=== PATIENT | female | born 1995 | race Caucasian/White ===

== ENCOUNTER 2016-04-01 17:20 | Inpatient (IN) | payer OTHER ==
[~2016-04-01] VITALS: Ht 165.1 cm; Wt 73.2 kg
[2016-04-01 19:21] VITALS: BP 122/75; PULSE 78; RESP 18
[2016-04-01] MEDS ORDERED: PRENAT PO (19:23)
[2016-04-01] MEDS ORDERED: CALC-516 PO (19:24)
[2016-04-01] MEDS ORDERED: LIDOCAINE 1% (MPF) 30 ML INJ INJ PRN (19:30)
[2016-04-01] MEDS ORDERED: MISOPROSTOL 200 MCG TAB PR PRN (19:30)
[2016-04-01] MEDS ORDERED: OXYTOCIN 30 UNITS/LR 500 ML IV PRN (19:30)
[2016-04-01] MEDS ORDERED: ACETAMINOPHEN/CODEINE #3 TAB PO PRN (19:30)
[2016-04-01] MEDS ORDERED: CARBOPROST 250 MCG INJ IM PRN (19:30)
[2016-04-01] MEDS ORDERED: OXYTOCIN 30 UNITS/LR 500 ML IV SCH ×3 (19:30→22:30)
[2016-04-01] MEDS ORDERED: BUTORPHANOL 2 MG INJ IV PRN ×2 (19:30)
[2016-04-01] MEDS ORDERED: LACTATED RINGER'S 1,000 ML IV PRN (19:30)
[2016-04-01] MEDS ORDERED: IBUPROFEN 600 MG TAB PO PRN (19:30)
[2016-04-01] MEDS ORDERED: METHYLERGONOVINE 0.2 MG INJ IM PRN (19:30)
[2016-04-01] MEDS: LACTATED RINGER'S 1,000 ML IV SCH (19:44)
--- NOTE | 2016-04-01 20:00 | TRIAGE ---
OB Triage Datetime Report Generated by CPN: 04/01/2016 19:59 Datetime: 04/01/2016 19:19 Vaginal Exam Dilatation (cms): 1.0 Effacement (%): 90 Membrane Status: Intact Datetime: 04/01/2016 19:18 Stage of : OB Triage Labor Evaluation Frequency: 2-4 Monitor Mode: External Duration (sec)2399: 80-140 Quality: Mild Resting Tone [place]: Relaxed Heart Rate FHR Baseline Rate: 140 Monitor Mode: External US FHR Baseline Changes: No Baseline Change Variability: Moderate 6-25 bpm Accelerations: 15X15 Decelerations: None Category: Category I Pain Assessment Pain Presence: None/Denies Pain Type: N/A Datetime: 04/01/2016 19:17 Stage of : Labor Datetime: 04/01/2016 19:09 Stage of : OB Triage Datetime: 04/01/2016 18:30 Stage of : OB Triage Labor Evaluation Frequency: 2-5 Monitor Mode: External Duration (sec)2399: 80-130 Quality: Mild Resting Tone [place]: Relaxed Heart Rate FHR Baseline Rate: 135 Monitor Mode: External US Variability: Moderate 6-25 bpm Accelerations: 15X15 Decelerations: Variable Category: Category I Pain Assessment Pain Presence: None/Denies Pain Type: N/A Datetime: 04/01/2016 18:27 Stage of : OB Triage Datetime: 04/01/2016 18:22 Vaginal Exam Dilatation (cms): 1.0 Effacement (%): 90 Station: -2 Exam By: M MENDOZA Vaginal Bleeding: None Cervix, Consistency: Soft Cervix, Position: Posterior Presentation 'A': Cephalic Datetime: 04/01/2016 17:51 Assessment Type: Triage Maternal Assessment Level of Consciousness: Fully Conscious DTR's/Clonus: DTRs 1+; No Clonus Headache: Denies Blurred Vision: No Respiratory Effort: Unlabored Breath Sounds, Left: Clear and Equal Breath Sounds, Right: Clear and Equal Nausea/Vomiting: Denies RUQ Epigastric Pain: Denies Lower Extremities Edema: None Degree: None Upper Extremities Edema: None Degree: None Facial Edema: None Fall Risk Assessment History of Falling: (0) No Secondary Diagnosis: (0) No Ambulatory Aid: (0) Bedrest/Nurse Assist IV Therapy: (0) No Gait: (0) Normal/Bedrest/Immobile Mental Status: (0) Oriented to Own Ability Fall Score: 0 Fall Risk Score Definition: No Risk: No action required Datetime: 04/01/2016 17:39 Stage of : OB Triage EGA: 38.0 Monitor Mode: External Monitor Mode: External US Datetime: 04/01/2016 17:35 Time of Arrival: 04/01/2016 17:19 Arrived By: Ambulatory Arrived From: Home Chief Complaint: SPOTTING Movement: Present Contractions: Denies/Absent Rupture of Membranes: Denies Vaginal Bleeding: Scant Vaginal Discharge: Denies Recent Sexual Intercouse: Denies Abdominal Trauma: Not Applicable Patient Complaints: Other Provider Notified: REICHE Initial Plan: VS, EFM, SVE Datetime: 04/01/2016 17:33 Stage of : OB Triage Datetime: 04/01/2016 17:28 Stage of : OB Triage
[2016-04-01 20:10] VITALS: Ht 165.1 cm; Wt 73.2 kg
[2016-04-01 20:21] LABS: BASOPHILS % 0.6 % (0.0-2.0); EOSINOPHILS % 0.4 % (0.0-7.0); HEMATOCRIT 35.9 % (37.0-47.0); HEMOGLOBIN 12.2 g/dl (12.0-16.0); LYMPHOCYTES # 1.5 10^3/ul (0.8-2.9); LYMPHOCYTES % 18.5 % (15.0-51.0); MEAN CORPUSCULAR HEMOGLOBIN 30.4 pg (29.0-33.0); MEAN CORPUSCULAR VOLUME 89.5 fl (82.0-101.0); MEAN PLATELET VOLUME 10.2 fl (7.4-10.4); MONOCYTE # 0.6 10^3/ul (0.3-0.9); MONOCYTES % 7.9 % (0.0-11.0); NEUTROPHIL # 5.9 10^3/ul (1.6-7.5); NEUTROPHILS % 72.6 % (39.0-77.0); PLATELET COUNT 142 10^3/UL (140-440); RED BLOOD COUNT 4.01 10^6/ul (4.20-5.40); RED CELL DISTRIBUTION WIDTH 13.2 % (11.5-14.5); UNCORRECTED WBC 8.2 10^3/ul (4.8-10.8); WHITE BLOOD COUNT 8.2 10^3/ul (4.8-10.8)
[2016-04-01 20:24] LABS: INR 0.96; PROTIME 12.8 Sec (12.2-14.2)
[2016-04-01 20:25] LABS: PARTIAL THROMBOPLASTIN TIME 26.3 Sec (25.0-35.0)
[2016-04-01 20:26] LABS: CONDITION 1
[2016-04-02] MEDS: LACTATED RINGER'S 1,000 ML IV SCH ×3 (02:32→09:49)
[2016-04-02] MEDS ORDERED: FENTAnyl 2MCG/ML-ROPIV 0.2% 100 ML ONE (05:16)
--- NOTE | 2016-04-02 14:01 | HP ---
Date/Time of Note Date/Time of Note DATE: 04/02/16 TIME: 13:56 OB - History Hx of Present Free Text/Dictation 20 years old white female 1 para 0 with EDC of April 15 admitted to [facility] in active labor examination on admission cervical dilatation 1 cm 90% effacement vertex at -2 station patient transferred from triage to L&D unit for delivery This patient has been under the care of the [place] [facility] and her course was uneventful except anemia was not complicated with -induced hypertension or gestational diabetes Estimated Due Date: Apr 15, 2016 : 1 Para: 0 Care: Good Care Ultrasounds: Normal mid trimester US Obstetrical Complications: None Medical Complications: None Past Family/Social History * Past Medical, Surgical, Family and Obstetric Histories reviewed from chart. Rubella: immune RPR/VDRL: Negative GBS Status: Negative HBsAG: Negative OB Admission Exam Vital Signs Vital Signs Vital Signs Date Time Temp Pulse Resp B/P Pulse Ox O2 Delivery O2 Flow Rate FiO2 04/01/16 19:21 98.9 78 18 122/75 Room Air Last 72 hours Lab Results CBC & BMP 04/01/16 19:35 KARLA SALAS MD Apr 02, 2016 14:01
--- NOTE | 2016-04-02 14:07 | LDN ---
Date/Time of Note Date/Time of Note DATE: 04/02/16 TIME: 14:01 Delivery Summary Normal spontaneous vaginal delivery of a baby girl from DAYNA position shoulder delivered without any difficulty and was followed with the risks of the baby's body cord clamped after stopped pulsation cord blood obtained baby handed to the team for immediate attention patient received 20 units of Pitocin through the IV infusion, placenta spontaneous expulsion inspected complete, blood loss 200 mL Problems: Delivery Information Sex Sex: female Apgars 1 Minute: 8 5 Minute: 9 Suctioning Nose & mouth suctioned at sebastian: No Umbilical Cord Umbilical cord with: 3 Vessels Cord presentations: no nuchal cord Cord Blood was obtained: Yes KARLA SALAS MD Apr 02, 2016 14:06
[2016-04-02] MEDS ORDERED: ACETAMINOPHEN/CODEINE #3 TAB PO PRN ×2 (15:30)
[2016-04-02] MEDS ORDERED: LANOLIN 7 GM TUBE TOP PRN (15:30)
[2016-04-02] MEDS ORDERED: DIBUCAINE 1% 30 GM OINT PR PRN (15:30)
[2016-04-02] MEDS ORDERED: ACETAMINOPHEN 325 MG TAB PO PRN (15:30)
[2016-04-02] MEDS ORDERED: WITCH HAZEL/GLYCERIN PAD PR PRN (15:30)
[2016-04-02] MEDS ORDERED: ONDANSETRON 4 MG INJ IV PRN (15:30)
[2016-04-02] MEDS ORDERED: BENZOCAINE 20% 56 ML SPRAY TOP PRN (15:30)
[2016-04-02] MEDS ORDERED: OXYCODONE/ASPIRIN (4.88/325) TAB PO PRN ×2 (15:30)
[2016-04-02 16:55] VITALS: BP 121/71; PULSE 61; RESP 20
[2016-04-02] MEDS: IBUPROFEN 600 MG TAB PO SCH ×2 (17:55→23:39)
[2016-04-02] MEDS: OXYTOCIN 30 UNITS/LR 500 ML IV SCH ×2 (17:55→22:12)
[2016-04-02 20:30] VITALS: BP_SYST 106; BP_SYST 109; BP_DIAS 55; BP_DIAS 65; PULSE 79; PULSE 80; RESP 18
[2016-04-02] MEDS: SENNA/DOCUSATE NA (8.6MG/50MG) TAB PO SCH (21:21)
[2016-04-02 23:30] VITALS: BP 102/52; PULSE 75; RESP 18
[2016-04-03 04:30] VITALS: BP 108/59; PULSE 67; RESP 18
[2016-04-03] MEDS: IBUPROFEN 600 MG TAB PO SCH ×3 (05:31→18:07)
[2016-04-03 08:05] LABS: BASOPHILS % 0.3 % (0.0-2.0); EOSINOPHILS # 0.1 10^3/ul (0.0-0.5); EOSINOPHILS % 0.6 % (0.0-7.0); HEMATOCRIT 32.9 % (37.0-47.0); LYMPHOCYTES # 1.7 10^3/ul (0.8-2.9); LYMPHOCYTES % 10.9 % (15.0-51.0); MEAN CORPUSCULAR HEMOGLOBIN 30.4 pg (29.0-33.0); MEAN CORPUSCULAR HGB CONC 33.4 g/dl (32.0-37.0); MEAN PLATELET VOLUME 9.8 fl (7.4-10.4); MONOCYTE # 0.9 10^3/ul (0.3-0.9); NEUTROPHIL # 12.9 10^3/ul (1.6-7.5); NEUTROPHILS % 82.2 % (39.0-77.0); PLATELET COUNT 112 10^3/UL (140-440); RED BLOOD COUNT 3.62 10^6/ul (4.20-5.40); RED CELL DISTRIBUTION WIDTH 13.6 % (11.5-14.5); UNCORRECTED WBC 15.7 10^3/ul (4.8-10.8); WHITE BLOOD COUNT 15.7 10^3/ul (4.8-10.8)
[2016-04-03 08:15] VITALS: BP 102/58; PULSE 66; RESP 18
[2016-04-03 08:39] LABS: CONDITION 1
[2016-04-03] MEDS: SENNA/DOCUSATE NA (8.6MG/50MG) TAB PO SCH ×2 (10:02→20:34)
--- NOTE | 2016-04-03 12:09 | PN ---
Date/Time of Note Date/Time of Note DATE: 04/03/16 TIME: 12:08 OB Subjective Subjective Subjective Post normal vaginal delivery day 1 Vital sign a stable afebrile abdomen soft uterus firm lochia normal extremity normal Laboratory Tests Test 04/03/16 07:15 Basophils # 0.010^3/ul Basophils % 0.3% Eosinophils # 0.110^3/ul Eosinophils % 0.6% Hematocrit 32.9% Hemoglobin 11.0g/dl Lymphocytes # 1.710^3/ul Lymphocytes % 10.9% Mean Corpuscular Hemoglobin 30.4pg Mean Corpuscular Hemoglobin Concent 33.4g/dl Mean Corpuscular Volume 91.0fl Mean Platelet Volume 9.8fl Monocytes # 0.910^3/ul Monocytes % 6.0% Neutrophils # 12.910^3/ul Neutrophils % 82.2% Nucleated Red Blood Cells # 0.010^3/ul Nucleated Red Blood Cells % 0.0/100WBC Platelet Count 04290^3/UL Red Blood Count 3.6210^6/ul Red Cell Distribution Width 13.6% White Blood Count 15.710^3/ul Current Medications Medications (Trade) Dose Ordered Sig/Janneth Route PRN Reason Start Time Stop Time Status Last Admin Dose Admin Lactated Ringer's (Lr) 1,000 ml @ 125 mls/hr Q8H IV 04/01/16 19:26 04/02/16 15:15 DC 04/02/16 09:49 Butorphanol Tartrate (Stadol) 1 mg Q2H PRN IV PAIN 04/01/16 19:30 04/02/16 15:15 DC Butorphanol Tartrate (Stadol) 2 mg Q2H PRN IV PAIN 04/01/16 19:30 04/02/16 15:15 DC Lidocaine 30 ml 30 ml ONCE PRN INJ EPISIOTOMY/TEARING 04/01/16 19:30 04/02/16 15:15 DC Oxytocin/Lactated Ringer's 500 ml @ 125 mls/hr ONCE -MAY REPEAT X1 IV 04/01/16 19:30 04/02/16 15:15 DC 04/02/16 14:26 Oxytocin/Lactated Ringer's 500 ml @ 125 mls/hr ONCE IV 04/01/16 19:30 12/30/16 15:15 DC Ibuprofen (Motrin) 600 mg ONCE PRN PO Mild Pain (Pain Score 1-3) 04/01/16 19:30 04/02/16 15:15 DC Acetaminophen/ Codeine Phosphate 2 tab 2 tab ONCE PRN PO Moderate to Severe Pain (4-10) 04/01/16 19:30 04/02/16 15:15 DC Lactated Ringer's 1,000 ml @ 2,000 mls/hr Q30M PRN IV PRE-EPIDURAL BOLUS 04/01/16 19:30 04/02/16 15:15 DC 04/02/16 04:18 Oxytocin/Lactated Ringer's 500 ml @ 0 mls/hr ONCE PRN IV For Hemorrhage Management 04/01/16 19:30 04/02/16 15:15 DC Methylergonovine Maleate (Methergine) 0.2 mg ONCE PRN IM VAGINAL BLEEDING 04/01/16 19:30 04/02/16 15:15 DC Carboprost Tromethamine (Hemabate) 250 mcg ONCE PRN IM VAGINAL BLEEDING 04/01/16 19:30 04/02/16 15:15 DC Misoprostol 1000 mcg 1,000 mcg ONCE PRN TX VAGINAL BLEEDING 04/01/16 19:30 04/02/16 15:15 DC Oxytocin/Lactated Ringer's 500 ml @ 0 mls/hr Q0M IV 04/01/16 22:30 04/02/16 15:14 DC 04/02/16 00:25 Fentanyl/ Ropivacaine 100 ml @ ud STK-MED ONCE .ROUTE 04/02/16 05:16 04/02/16 05:17 DC Oxytocin/Lactated Ringer's 500 ml @ 125 mls/hr Q4H IV 04/02/16 15:12 04/02/16 23:11 DC 04/02/16 22:12 Ibuprofen (Motrin) 600 mg Q6 PO 04/02/16 18:00 04/03/16 12:04 Acetaminophen (Tylenol Tab) 650 mg Q4H PRN PO PAIN LEVEL 1-5 04/02/16 15:30 04/02/16 16:34 Acetaminophen/ Codeine Phosphate (Tylenol No.3) 1 tab Q4H PRN PO PAIN LEVEL 1-5 04/02/16 15:30 Acetaminophen/ Codeine Phosphate (Tylenol No.3) 2 tab Q4H PRN PO PAIN LEVEL 6-10 04/02/16 15:30 Oxycodone/Aspirin (Percodan) 1 tab Q3H PRN PO PAIN LEVEL 1-5 04/02/16 15:30 Oxycodone/Aspirin (Percodan) 2 tab Q3H PRN PO PAIN LEVEL 6-10 04/02/16 15:30 Ondansetron HCl (Zofran Inj) 4 mg Q6H PRN IV NAUSEA AND/OR VOMITING 04/02/16 15:30 Senna/Docusate Sodium (Senokot-S) 1 tab BID PO 04/02/16 21:00 04/03/16 10:02 Witch Laurel/ Glycerin (Tucks Pads) 1 pad BEDSIDE MEDICATION PRN TX HEMORRHOID/EPISIOTMY PAIN 04/02/16 15:30 04/03/16 10:02 Benzocaine (Dermoplast [place]) 1 spray BEDSIDE MEDICATION PRN TOP HEMORRHOID/EPISIOTMY PAIN 04/02/16 15:30 04/02/16 17:55 Dibucaine (Nupercainal) 1 applic BEDSIDE MEDICATION PRN TX HEMORRHOID/EPISIOTMY PAIN 04/02/16 15:30 04/03/16 10:03 Lanolin (Ihw-Q-Usfyab) 1 applic BEDSIDE MEDICATION PRN TOP BEDSIDE FOR RONALD TO NIPPLES 04/02/16 15:30 04/03/16 10:02 Measles/Mumps/ Rubella Vaccine Live (Mmr Ii Vaccine) 0.5 ml ONCE ONCE SC* 04/04/16 09:00 04/04/16 09:01 Influenza Virus Vaccine (Fluzone) 0.5 ml ONCE ONCE IM* 04/05/16 09:00 04/05/16 09:01 KARLA SALAS MD Apr 03, 2016 12:09
[2016-04-03 16:00] VITALS: BP 100/56; PULSE 70; RESP 18
[2016-04-03 20:30] VITALS: BP 103/55; PULSE 80; RESP 18
[2016-04-04] MEDS: IBUPROFEN 600 MG TAB PO SCH ×3 (00:27→11:46)
[2016-04-04 04:00] VITALS: BP 102/59; PULSE 71; RESP 17
[2016-04-04 08:00] VITALS: BP 100/59; PULSE 62; RESP 18
[2016-04-04] MEDS ORDERED: MEASLES,MUMPS,RUBELLA VACCINE INJ SC* ONE (09:00)
[2016-04-04] MEDS: SENNA/DOCUSATE NA (8.6MG/50MG) TAB PO SCH (09:08)
--- NOTE | 2016-04-04 13:26 | DS ---
Date/Time of Note Date/Time of Note DATE: 04/04/16 TIME: 13:23 Obstetrical Discharge Record Final Diagnosis Final Diagnosis: Term delivered Vaginal Delivery Obstetrical Delivery: Spontaneous Condition on Discharge Physical Assessment Last Vitals: Vital sign stable afebrile abdomen soft uterus firm lochia normal extremity nor patient is being discharged home with the follow-up instruction recommended to make appointment to be seen at the clinic in 2 weeks Voiding: Yes Bowel Movement: Yes Breast: Filling Fundus: Firm Calf Tenderness: No Patient Condition: Good KARLA SALAS MD Apr 04, 2016 13:26
[2016-04-05] MEDS ORDERED: INFLUENZA VIRUS VACCINE 0.5 ML SYG IM* ONE (09:00)
== END 2016-04-04 14:45 | disposition home or self-care (01) | DRG 775 ==
LOC: OBT 17:20 → L-D 17:20 → OBT 19:10 → L-D 19:10 → PP1 04-02 16:29
PROVIDERS: ADMIT Obstetrics & Gynecology; ATTEND Obstetrics & Gynecology
PROC: 10E0XZZ Delivery of Products of Conception, External Approach (ICD-10-PCS; principal; 2016-04-02)
DX: O80 Encounter for full-term uncomplicated delivery (principal); Z37.0 Single live birth; Z3A.38 38 weeks gestation of pregnancy
CPT/HCPCS: 62319; 85025; 85610; 85730; 86592; 86900; 86901; 87340; G0463; J2590; J3010; J7120